=== PATIENT | female | born 2000 | race Caucasian/White ===

== ENCOUNTER 2020-03-06 07:15 | Emergency (ER) | payer OTHER ==
[~2020-03-06] VITALS: Ht 165.1 cm; Wt 50.8 kg
[2020-03-06] MEDS ORDERED: HUMALOG100 UNIT/2 (07:35)
[2020-03-06] MEDS ORDERED: HUMULIN N100 UNIT/2 (07:35)
[2020-03-06] MEDS ORDERED: TUSNEL LIQUID178 ML PO (10:54)
[2020-03-06] MEDS ORDERED: ZOFRAN8 MG SL (10:54)
[2020-03-06] MEDS ORDERED: ZITHROMAX500 MG PO (10:54)
[2020-03-06] MEDS ORDERED: PEPCID AC20 MG PO (10:54)
== END 2020-03-06 11:06 | disposition home or self-care (01) ==
LOC: ER 07:15
DX: K29.60 Other gastritis without bleeding (principal); J06.9 Acute upper respiratory infection, unspecified; B96.0 Mycoplasma pneumoniae [M. pneumoniae] as the cause of diseases classified elsewhere

== ENCOUNTER 2020-09-01 12:37 | Emergency (ER) | payer OTHER ==
[~2020-09-01] VITALS: Ht 165.1 cm; Wt 50.8 kg
[~2020-09-01 12:37] MED LIST: HUMALOG100 UNIT/2; HUMULIN N100 UNIT/2; PEPCID AC20 MG PO; TUSNEL LIQUID178 ML PO; ZITHROMAX500 MG PO; ZOFRAN8 MG SL
[2020-09-01] MEDS ORDERED: ZITHROMAX200 MG (12:51)
== END 2020-09-01 16:38 | disposition home or self-care (01) ==
LOC: ER 12:37
DX: A90 Dengue fever [classical dengue] (principal); M13.88 Other specified arthritis, other site; Z03.818 Encounter for observation for suspected exposure to other biological agents ruled out

== ENCOUNTER 2020-09-02 19:47 | Emergency (ER) | payer OTHER ==
[~2020-09-02] VITALS: Ht 165.1 cm; Wt 50.8 kg
[~2020-09-02 19:47] MED LIST changes: +ZITHROMAX200 MG
[2020-09-03] MEDS ORDERED: ACETAMINOPHEN650 M2 PO (01:56)
== END 2020-09-03 02:26 | disposition home or self-care (01) ==
LOC: ER 19:47
DX: A90 Dengue fever [classical dengue] (principal); B34.9 Viral infection, unspecified; Z03.818 Encounter for observation for suspected exposure to other biological agents ruled out

== ENCOUNTER 2021-01-09 12:42 | Emergency (ER) | payer OTHER ==
[~2021-01-09] VITALS: Ht 165.1 cm; Wt 49.9 kg
[~2021-01-09 12:42] MED LIST changes: +ACETAMINOPHEN650 M2 PO
[2021-01-09] MEDS ORDERED: GABAPENTIN400 MG PO (13:03)
[2021-01-09] MEDS ORDERED: NITROFURANTOIN100 M1 PO (13:04)
== END 2021-01-09 16:36 | disposition home or self-care (01) ==
LOC: ER 12:42
DX: N39.0 Urinary tract infection, site not specified (principal); R10.31 Right lower quadrant pain